=== PATIENT | female | born 1950 | race Caucasian/White ===

== ENCOUNTER 2019-08-12 10:20 | Emergency (ER) | payer MEDICARE, OTHER ==
[~2019-08-12] VITALS: Ht 162.6 cm; Wt 91.3 kg
[2019-08-12 11:44] VITALS: BP 175/101
[2019-08-12 11:52] LABS: BASOPHILS # (AUTO) 0.1 X10'3 (0-0.2); BASOPHILS % (AUTO) 0.8 % (0-1); EOSINOPHILS # (AUTO) 0.2 X10'3 (0-0.9); EOSINOPHILS % (AUTO) 2.5 % (0-6); HEMOGLOBIN 13.3 g/dl (12.0-16.0); LYMPHOCYTES # (AUTO) 1.7 X10'3 (1.1-4.8); LYMPHOCYTES % (AUTO) 21.2 % (21-51); MEAN CORPUSCULAR HEMOGLOBIN 28.5 PG (27.0-31.0); MEAN CORPUSCULAR HGB CONC 33.3 g/dL (33.0-36.5); MEAN CORPUSCULAR VOLUME 85.5 FL (78-98); MEAN PLATELET VOLUME 8.2 FL (7.4-10.4); MONOCYTES # (AUTO) 0.7 X10'3 (0-0.9); NEUTROPHILS # (AUTO) 5.5 X10'3 (1.8-7.7); NEUTROPHILS % (AUTO) 67.5 % (42-75); PLATELET COUNT 220 X10'3 (140-440); RED BLOOD COUNT 4.68 X10'6 (4.20-5.60); RED CELL DISTRIBUTION WIDTH 14.5 % (11.5-14.5); WHITE BLOOD COUNT 8.1 X10'3 (4.5-11.0)
[2019-08-12 12:02] LABS: CLARITY,URINE CLOUDY (Clear); COLOR,URINE YELLOW (Yellow); GLUCOSE, URINE NEGATIVE (Neg); KETONES,URINE NEGATIVE (Neg); LEUKOCYTE ESTERASE ,URINE LARGE (Neg); NITRITES, URINE NEGATIVE (Neg); OCCULT BLOOD,URINE MODERATE (Neg); PROTEIN,URINE NEGATIVE (Neg); UROBILINOGEN,URINE 0.2 E.U/dL (0.2-1.0)
[2019-08-12 12:08] LABS: UA COLLECTION TYPE CLN CATCH MIDSTREAM
[2019-08-12 12:12] LABS: SQUAMOUS EPITHELIAL CELL,UR MANY /LPF (FEW)
[2019-08-12 12:13] LABS: BACTERIA,URINE 2+ /HPF (Neg); RBC,URINE 20-50 /HPF (0-2); WBC CLUMPS,URINE MANY /HPF (NEGATIVE); WBC,URINE 50-100 /HPF (0-4)
[2019-08-12] MEDS ORDERED: CEPH500C5 PO (12:49)
== END 2019-08-12 13:07 | disposition home or self-care (01) ==
LOC: ER 10:20
DX: N39.0 Urinary tract infection, site not specified (principal); N93.9 Abnormal uterine and vaginal bleeding, unspecified; I10 Essential (primary) hypertension; Z88.2 Allergy status to sulfonamides; Z88.1 Allergy status to other antibiotic agents
CPT/HCPCS: 36415; 81001; 85025; 99283

== ENCOUNTER 2019-12-19 06:40 | Day surgery (SDC) | payer MEDICARE ==
[2019-12-16 16:01] LABS: BASOPHILS # (AUTO) 0.1 X10'3 (0-0.2); BASOPHILS % (AUTO) 0.6 % (0-1); EOSINOPHILS # (AUTO) 0.2 X10'3 (0-0.9); EOSINOPHILS % (AUTO) 1.5 % (0-6); LYMPHOCYTES # (AUTO) 2.2 X10'3 (1.1-4.8); LYMPHOCYTES % (AUTO) 19.6 % (21-51); MEAN CORPUSCULAR HEMOGLOBIN 26.9 PG (27.0-31.0); MEAN CORPUSCULAR HGB CONC 32.9 g/dL (33.0-36.5); MEAN CORPUSCULAR VOLUME 81.7 FL (78-98); MEAN PLATELET VOLUME 8.7 FL (7.4-10.4); MONOCYTES # (AUTO) 0.7 X10'3 (0-0.9); NEUTROPHILS % (AUTO) 72.3 % (42-75); PRE OP HEMATOCRIT 39.9 % (35.0-45.0); PRE OP HEMOGLOBIN 13.1 g/dL (12.0-16.0); PRE OP PLATELET COUNT 265 X10'3 (140-440); RED BLOOD COUNT 4.89 X10'6 (4.20-5.60)
[2019-12-16 16:06] LABS: PRE OP PROTIME 10.3 SECONDS (9.0-12.0)
[2019-12-16 16:09] LABS: CLARITY,URINE CLOUDY (Clear); COLOR,URINE YELLOW (Yellow); GLUCOSE, URINE NEGATIVE (Neg); KETONES,URINE NEGATIVE (Neg); LEUKOCYTE ESTERASE ,URINE MODERATE (Neg); NITRITES, URINE NEGATIVE (Neg); OCCULT BLOOD,URINE MODERATE (Neg); PH,URINE 5.5 (4.8-8.0); PROTEIN,URINE NEGATIVE (Neg); UROBILINOGEN,URINE 0.2 E.U/dL (0.2-1.0)
[2019-12-16 16:10] LABS: UA COLLECTION TYPE CLN CATCH MIDSTREAM
[2019-12-16 16:11] LABS: ALBUMIN 3.3 G/DL (3.4-5.0); ALBUMIN/GLOBULIN RATIO 0.7 (1.1-1.5); ALKALINE PHOSPHATASE 117 IU/L (46-116); BLOOD UREA NITROGEN 11 MG/DL (7-18); BUN/CREATININE RATIO 9.5 (6.6-38.0); CALCIUM 9.4 MG/DL (8.5-10.1); CHLORIDE 106 MMOL/L (99-107); CREATININE 1.16 MG/DL (0.40-0.90); PRE OP ALT 14 U/L (30-65); PRE OP ANION GAP 9 (8-16); PRE OP AST 17 U/L (10-37); PRE OP BILIRUB, TOTAL 0.3 MG/DL (0.0-1.0); PRE OP GLUCOSE 91 MG/DL (70-104); PRE OP POTASSIUM 4.1 MMOL/L (3.4-5.1); PRE OP SODIUM 142 MMOL/L (135-145); TOTAL CARBON DIOXIDE 27.3 MMOL/L (24-32); eGFR 46 ML/MIN
[2019-12-16 16:29] LABS: SQUAMOUS EPITHELIAL CELL,UR MANY /LPF (FEW)
[2019-12-16 16:32] LABS: MUCUS STRANDS FEW /LPF (Neg); WBC,URINE 50-100 /HPF (0-4)
[2019-12-16 16:33] LABS: BACTERIA,URINE FEW /HPF (Neg)
[~2019-12-19] VITALS: Ht 162.6 cm; Wt 83.9 kg
[2019-12-19] VITALS (7 sets, daily range): BP systolic 113–140; BP diastolic 71–82
[~2019-12-19 06:40] MED LIST: LISI40TA4 PO; albuterol 2.5 MG/3 ML nebule NEB ONE; ceFOXitin sod/dextrose 2g/50ml 50 ML IV ONE; famotidine 20mg tablet PO ONE; ringers solution, lacted 1,000 ML IV SCH
[2019-12-19] MEDS ORDERED: ringers solution, lacted 1,000 ML IV SCH (07:07)
[2019-12-19] MEDS ORDERED: ondansetron/PF 4mg/2ml inj IV PRN (07:10)
[2019-12-19] MEDS ORDERED: morphine 2 MG/ML inj. syringe IV PRN (07:10)
[2019-12-19] MEDS ORDERED: acetaminophen 1,000mg/100ml IV 100 ML IV PRN (07:10)
[2019-12-19] MEDS ORDERED: meperidine/PF 25mg/ml syringe IV PRN ×3 (07:10)
[2019-12-19] MEDS ORDERED: proCHLORperazine 10 MG/2 ml inj IV PRN (07:10)
[2019-12-19] MEDS ORDERED: LIDOcaine 1% (10mg/ml) 2ml vial ONE (07:12)
[2019-12-19] MEDS ORDERED: ferric subsulfate solution/paste 1 APPLIC SOL.W.APPL TP ONE (07:35)
[2019-12-19] MEDS ORDERED: fentaNYL/PF 50MCG/1 ML 2ML syringe ONE (08:00)
[2019-12-19] MEDS ORDERED: midazolam 2 mg/2 ml injection ONE (08:01)
[2019-12-19] MEDS ORDERED: propofol inj 20 ML IV ONE ×2 (08:11→08:19)
[2019-12-19] MEDS ORDERED: LIDOcaine 2% (20mg/ml) 5ml vial ONE (08:12)
[2019-12-19] MEDS ORDERED: dexamethasone sod phosphate 4mg/ml inj. ONE (08:17)
[2019-12-19] MEDS ORDERED: ondansetron/PF 4mg/2ml inj ONE (08:17)
--- NOTE | 2019-12-19 08:33 | NUR ---
20G LEFT PIV, VS STABLE, DENIES PAIN, PT STABLE, O2 SAT 100% ON 10L Addendum: 12/19/19 at 0847 by Aden Corona RN, RN Amended: Links added.
--- NOTE | 2019-12-19 09:23 | NUR ---
ALL DC CRITERIA HAS BEEN MET. IV TAKEN OUT WITHOUT COMPLICATIONS. ALL INSTRUCTIONS COVERED AND ALL QUESTIONS ANSWERED. DRESSINGS CDI. OUT VIA WHEELCHAIR TO PERSONAL VEHICLE WHERE PATIENT WAS SECURED IN AND DRIVEN HOME BY FAMILY. FAMILY ACCOMPANIED OUT TO PERSONAL VEHICLE. PATIENT VOIDED, AMBULATED AND HAD NO C.O PAIN. Addendum: 12/19/19 at 0947 by Aden Corona RN, RN Amended: Links added.
== END 2019-12-19 09:23 | disposition home or self-care (01) ==
LOC: PAS 06:40
PROVIDERS: ATTEND Obstetrics & Gynecology
DX: C53.0 Malignant neoplasm of endocervix (principal); Z79.899 Other long term (current) drug therapy; I10 Essential (primary) hypertension; F17.210 Nicotine dependence, cigarettes, uncomplicated; Z98.51 Tubal ligation status; Z89.029 Acquired absence of unspecified finger(s); Z88.2 Allergy status to sulfonamides; Z88.8 Allergy status to other drugs, medicaments and biological substances
CPT/HCPCS: 36415; 57522; 71046; 80053; 81001; 82948; 85025; 85610; 85730; 86870; 86885; 86900; 86901; 86902; 86905; 93005; 94640; J0694; J1100; J2001; J2250; J2405; J2704; J3010; A4618; A7000; J7120